=== PATIENT | female | born 1990 | race Caucasian/White ===

== ENCOUNTER 2023-12-19 12:53 | Outpatient (CLI) | payer OTHER ==
[2023-12-19 14:07] LABS: Hematocrit 39.6 % (34.9-44.5)
== END 2023-12-19 12:54 | disposition home or self-care (01) ==
LOC: LABBT 12:53
PROVIDERS: ATTEND Otolaryngology Plastic Surgery within the Head & Neck
DX: Z01.812 Encounter for preprocedural laboratory examination (principal)
CPT/HCPCS: 85014

== ENCOUNTER 2023-12-24 07:37 | Day surgery (SDC) | payer OTHER ==
[2023-12-19 13:41] VITALS: BMI 62.1
[2023-12-24] MEDS ORDERED: Oxymetazoline HCl 0.05% (30 ML BOT) ONE ×2 (09:58→10:49)
[2023-12-24] MEDS ORDERED: EPINEPHrine 1 MG/ML VIAL ONE (10:49)
[2023-12-24] MEDS ORDERED: Lidocaine 1% (PF) 30 ML VIAL ONE (10:50)
[2023-12-24] MEDS ORDERED: Bacitracin Zinc Ointment 30 gm TUBE ONE (10:50)
[2023-12-24] MEDS ORDERED: PROPOFOL 20 ML ONE (10:55)
[2023-12-24] MEDS ORDERED: fentaNYL PF 100 MCG/2 ML SYRINGE ONE (10:55)
[2023-12-24] MEDS ORDERED: Rocuronium Bromide 10 MG/ML (10ML VIAL) ONE (11:21)
[2023-12-24] MEDS ORDERED: SUGAMMADEX SODIUM 200 MG/2 ML VIAL ONE ×2 (11:39→13:42)
[2023-12-24] MEDS ORDERED: Phenylephrine 10 MG/ML VIAL ONE (11:53)
[2023-12-24] MEDS ORDERED: Lidocaine 1% PF 5 ML VIAL ONE (12:49)
[2023-12-24] MEDS ORDERED: Dexamethasone 20 MG/5 ML VIAL ONE (13:16)
[2023-12-24] MEDS ORDERED: Ondansetron PF 4 MG/2 ML Vial ONE (13:16)
[2023-12-24] MEDS ORDERED: Ipratropium/Albuterol 3 ML NEB ONE (14:45)
[2023-12-24] MEDS ORDERED: fentaNYL 50 mcg/mL 1 mL Vial ONE (14:48)
[2023-12-24] MEDS ORDERED: HYDROcodone/Acetaminophen 5/325 mg Tablet ONE (16:09)
== END 2023-12-24 17:42 | disposition home or self-care (01) ==
LOC: SDC 07:37
PROVIDERS: ATTEND Otolaryngology Plastic Surgery within the Head & Neck
PROC: 09BU8ZZ Excision of Right Ethmoid Sinus, Via Natural or Artificial Opening Endoscopic (ICD-10-PCS; principal; 2023-12-24)
PROC: 09BV8ZZ Excision of Left Ethmoid Sinus, Via Natural or Artificial Opening Endoscopic (ICD-10-PCS; principal; 2023-12-24)
PROC: 09BT8ZZ Excision of Left Frontal Sinus, Via Natural or Artificial Opening Endoscopic (ICD-10-PCS; principal; 2023-12-24)
PROC: 09BQ8ZZ Excision of Right Maxillary Sinus, Via Natural or Artificial Opening Endoscopic (ICD-10-PCS; principal; 2023-12-24)
PROC: 09SM4ZZ Reposition Nasal Septum, Percutaneous Endoscopic Approach (ICD-10-PCS; principal; 2023-12-24)
PROC: 09BW8ZZ Excision of Right Sphenoid Sinus, Via Natural or Artificial Opening Endoscopic (ICD-10-PCS; principal; 2023-12-24)
PROC: 09BR8ZZ Excision of Left Maxillary Sinus, Via Natural or Artificial Opening Endoscopic (ICD-10-PCS; principal; 2023-12-24)
PROC: 09BX8ZZ Excision of Left Sphenoid Sinus, Via Natural or Artificial Opening Endoscopic (ICD-10-PCS; principal; 2023-12-24)
PROC: 09TL8ZZ Resection of Nasal Turbinate, Via Natural or Artificial Opening Endoscopic (ICD-10-PCS; principal; 2023-12-24)
PROC: 09BS8ZZ Excision of Right Frontal Sinus, Via Natural or Artificial Opening Endoscopic (ICD-10-PCS; principal; 2023-12-24)
DX: J32.8 Other chronic sinusitis (principal); J34.2 Deviated nasal septum; J34.3 Hypertrophy of nasal turbinates; J34.89 Other specified disorders of nose and nasal sinuses; Z91.048 Other nonmedicinal substance allergy status; Z91.040 Latex allergy status; J45.909 Unspecified asthma, uncomplicated
CPT/HCPCS: J0171; J1100; J2001; J2371; J2405; J2704; J3010; J7620